=== PATIENT | female | born 1980 | race Caucasian/White ===

== ENCOUNTER 2016-11-20 17:30 | Emergency (ER) | payer BC | END 2016-11-20 18:14 | disposition home or self-care (01) | LOC: BURERS 17:30 | DX: S61.215A Laceration without foreign body of left ring finger without damage to nail, initial encounter (principal); W45.8XXA Other foreign body or object entering through skin, initial encounter | CPT/HCPCS: 12001 ==

== ENCOUNTER 2017-06-18 14:50 | Outpatient (CLI) | payer BC ==
--- NOTE | 2017-06-19 07:25 | RAD ---
RIGHT FOOT THREE VIEWS: 06/18/17 An oblique fracture of the proximal phalanx of the fourth toe is present with slight displacement. T here is no significant angulation. The remainder of the foot appears intact. IMPRESSION: Oblique fracture of the proximal phalanx of the fourth toe. POS: HOME
== END 2017-06-18 14:51 | disposition home or self-care (01) ==
LOC: BURRAD 14:50
PROVIDERS: ATTEND Family Medicine
DX: M79.671 Pain in right foot (principal); M79.674 Pain in right toe(s)

== ENCOUNTER 2019-12-24 19:59 | Emergency (ER) | payer BC, OTHER ==
[2019-12-24 21:54] LABS: #Basophils 0.1 thou/uL (0.0-0.2); #Eosinphils 0.1 thou/uL (0.0-0.7); #Lymphocytes 2.4 thou/uL (1.20-3.40); #Monocytes 0.7 thou/uL (0.11-0.59); #Neutrophils 5.7 thou/uL (1.40-6.50); %Basophils 0.8 % (0.0-1.0); %Lymphocytes 26.8 % (21.0-51.0); %Monocytes 7.7 % (0.0-10.0); %Neutrophils 63.7 % (42.0-75.0); Hemoglobin 13.5 g/dL (12.0-16.0); Mean Corpuscular HGB CONC 32.6 g/dL (32.0-36.0); Mean Corpuscular Hemoglobin 28.5 pg (27.0-31.0); Mean Corpuscular Volume 87.5 fL (78.0-98.0); Mean Platelet Volume 6.7 fL (7.4-10.4); Platelet Count 295 thou/uL (130-400); RBC Distribution Width 12.5 % (11.5-14.5); Red Blood Cell (RBC) Count 4.74 mill/uL (4.20-5.40); White Blood Cell (WBC) Count 8.9 thou/uL (4.8-10.8)
[2019-12-24 22:12] LABS: ALT (SGPT) 26 U/L (8-55); AST (SGOT) 24 U/L (5-34); Albumin 4.3 g/dL (3.5-5.0); Alkaline Phosphatase 49 U/L (40-110); Anion Gap 16 mmol/L (10-20); BUN (Urea Nitrogen) 14 mg/dL (7.0-18.7); Bilirubin, Total 0.3 mg/dL (0.2-1.2); Calc. Creatinine Clearance 0 mL/min (70-130); Carbon Dioxide 21 mmol/L (22-29); Chloride 107 mmol/L (98-107); Estimated GFR-MDRD 57; Globulin 2.2 g/dL (2.4-3.5); Glucose 97 mg/dL (70-105); Potassium 4.2 mmol/L (3.5-5.1); Protein, Total 6.5 g/dL (6.0-8.3); Sodium 140 mmol/L (136-145)
--- NOTE | 2019-12-24 22:43 | RAD ---
CHEST TWO VIEWS: 12/24/19 The heart is normal in size. There is no vascular congestion or edema. No major lobar infiltrate was seen, but there was some slight haziness in the right base medially. If the patient had a cough or ot her signs of symptoms of infection, then the finding might take on new meaning. There is no vascular congestion or edema to suggest congestive change. Scoliosis was noted in this patient. IMPRESSION: Equivocal right basilar haziness. Correlate with clinical symptoms. POS: HOME
== END 2019-12-24 22:40 | disposition home or self-care (01) ==
LOC: BURERS 19:59
DX: J06.9 Acute upper respiratory infection, unspecified (principal); J45.909 Unspecified asthma, uncomplicated
CPT/HCPCS: 36415; 71046; 80053; 83880; 84484; 85025; 87804; 93005